=== PATIENT | female | born 1970 | race Two or more races ===

== ENCOUNTER 2023-06-06 05:50 | Day surgery (SDC) | payer OTHER ==
[~2023-06-06 05:50] MED LIST: COZAAR100 MG PO; CYMBALTA60 MG PO; HYDRODIURIL12.5 MG PO; SINGULAIR10 MG PO; ZYRTEC10 M3 PO
[2023-06-06] MEDS ORDERED: NEURONTIN300 MG PO (11:51)
[2023-06-06] MEDS ORDERED: COLACE100 MG PO (11:51)
[2023-06-06] MEDS ORDERED: TRAM1TAB98 PO (11:51)
== END 2023-06-06 15:35 | disposition home or self-care (01) ==
LOC: CIR.AMB 05:50
PROVIDERS: ATTEND Surgery
DX: K62.82 Dysplasia of anus (principal); K63.5 Polyp of colon; K62.1 Rectal polyp; K62.89 Other specified diseases of anus and rectum; Z20.822 Contact with and (suspected) exposure to COVID-19

== ENCOUNTER → 2025-08-12 | Day surgery (SDC) | payer OTHER ==
[2025-08-08 15:04] VITALS: BP 135/80
[~2025-08-12] VITALS: Ht 170.2 cm; Wt 73.9 kg
[~2025-08-12] MED LIST changes: +CEFTRIAXONE SODIUM 2,000 MG VIAL ONE; +CLONAZEPAM2 MG; +COLACE100 MG PO; +DIBUCAINE 30 GM TUBE ONE; +HEMOSTATIC MATRIX 1 KIT KIT TOP ONE; +METRONIDAZOLE/SODIUM CHLORIDE 500 MG/100 ML PIGGYBACK IV ONE; +NEURONTIN300 MG PO; +REMERON45 M1 PO; +TRAM1TAB98 PO
== END | disposition home or self-care (01) ==
LOC: ADM 08-08 10:45 → CIR.AMB 07:00
PROVIDERS: ATTEND Surgery
DX: D12.8 Benign neoplasm of rectum (principal); K62.89 Other specified diseases of anus and rectum